=== PATIENT | female | born 1965 | race Caucasian/White ===

== ENCOUNTER 2016-06-24 16:21 | Emergency (ER) | payer BC ==
--- NOTE | ~2016-06-24 | CT4 ---
[facility] A Service of [facility] & [facility] RADIOLOGY TEXT RESULTS PATIENT: ALFA ZENG LOCATION: SED : 61 UNIT #: [id number] AGE: [address]: Raciel Peña SEX: F ORDER DR: [id number] [address] [id number] [id number] E MR#: [id number] Acc #: [id number] NAME: ALFA ZENG. : 1965 SEX: F STUDY DATE/TIME: 06/24/2016 18:01 UNIT: SED ROOM: STUDY DESCRIPTION: CT Abd and Pelv Wo Cont Attending Physician: Raciel Peña P.A.-C. Ordering Physician: Raciel Peña P.A.-C. Primary Care Physician: Mary Jo Sun M.D. MEDICAL IMAGING REPORT This report is preliminary unless electronic signature is present. EXAM Abdomen and pelvis CT, no contrast, 06/24/2016 INDICATIONS A 50-year-old female with flank pain on the left, hematuria since this morning. TECHNIQUE This CT exam was performed with one or more of the following radiation dose reduction techniques: automatic exposure control, adjustment of mA and/or kV according to patient size, and iterative reconstruction. Noncontrast abdomen and pelvis CT was performed COMPARISON 09/27/[address] ABDOMEN: Exam degraded by noncontrast technique. The included lung bases are clear. There is no effusion. Aorta unremarkable. There is a 6 mm obstructing stone at the left renal pelvis. There is hydronephrosis of the upper pole collecting system of the left kidney. The stone may actually be lodged at the junction of the renal pelvis and upper pole collecting system, given the distribution of hydronephrosis of the left kidney. The remainder of the left ureter is decompressed. There is no additional radiopaque stone on the left. No radiopaque stone on the right. There is incomplete rotation of the right kidney, an anatomic variant. The solid abdominal organs are otherwise unremarkable. Incidental small hiatal hernia. CT Pelvis: There is a small exophytic fibroid arising from the uterine fundus to the right of midline measuring about 2.3 cm. The bladder STS. [facility] A Service of [facility] & [facility] RADIOLOGY TEXT RESULTS PATIENT: ALFA ZENG LOCATION: SED : 61 UNIT #: [id number] AGE: [address]: Raciel Peña PAC SEX: F ORDER DR: decompressed but otherwise unremarkable. No drainable fluid collection in the pelvis. Physiologic appearing follicles in both ovaries. There is a probably benign cyst in the left ovary measuring 3.2 cm. This could be better assessed with dedicated nonemergent pelvic ultrasound, given patient age. There is diverticulosis. The appendix is normal. Inguinal canals unremarkable. There is no suspicious bone lesion. Degenerative changes are present in the thoracolumbar spine. Upon review of the prior CT from 09/27/2015, the above described hydronephrosis of the left kidney most likely actually represents a chronic peripelvic cyst on the left. The appearance of the left kidney is unchanged from the prior study with the exception of migration of the 6 mm stone into the left renal pelvis. IMPRESSION 1. There is a 6 mm stone at the left renal pelvis that appears to have migrated from the lower pole collecting system since the prior study of 09/27/2015. This likely accounts for hematuria symptoms. 2. What likely represents a chronic peripelvic cyst on the left simulating hydronephrosis of the left kidney. The appearance is unchanged from 09/27/2015. There is no new perinephric stranding or other stigmata of hydronephrosis on the current study despite migration of the stone into the left renal pelvic region. 3. Incomplete rotation of the right kidney, an anatomic variant. 4. The appendix is normal. 5. Incidental diverticulosis. 6. Probable physiologic cyst in the left ovary measures at 3.2 cm. See discussion above. 7. Leiomyomatous change of the uterus. Dictated by... Rm Saavedra M.D. THIS IS AN ELECTRONICALLY VERIFIED REPORT Rm Saavedra M.D. at 06/25/2016 10:18 AM Jaime TD: 06/25/2016 00:40 JOB #: [id number] MEDICAL IMAGING REPORT
[~2016-06-24 16:21] MED LIST: B12 PO; CIPRO PO; CLARITIN10 M2 PO; CLARITIN10 MG PO; DICYCLOMINE HCL20 MG PO; ESTROVEN ENERG1 EACH; GLUCOPHAGE XR500 MG PO; GLUCOPHAGE500 M1 PO; HYDROCODON-ACE1 EAC7 PO; KETOPROFEN PO; LEVOTHROID150 MCG PO; LEVOTHYROXINE175 MCG PO; LORATADINE PO; LOSARTAN HCTZ PO; LOSARTAN-HCTZ1 EAC2 PO; METFORMIN HCL500 M1 PO; METFORMIN PO; NASONEX17 GM; NEXIUM PO; OMEPRAZOLE20 M2 PO; OMEPRAZOLE40 M1 PO; PREDNISONE PO; PRILOSEC40 MG PO; SYNTHROID PO; SYNTHROID137 MCG PO; VENAFAXINE PO; VENLAFAXINE HC150 M1 PO; VICODIN 5/500 T1 TAB PO; VITAMIN D2 PO; ZOFRAN ODT4 MG PO; ZOLOFT PO; ZOLOFT50 MG PO; ZYRTEC10 M2 PO
[2016-06-24 17:14] LABS: URINE SOURCE CLEAN CATCH
[2016-06-24 17:21] LABS: URINE APPEARANCE SL CLOUDY; URINE BILIRUBIN NEG (NEG); URINE BLOOD 3+ (NEG); URINE COLOR YELLOW; URINE GLUCOSE NEG (NORM); URINE KETONE TRACE (NEG); URINE LEUKOCYTE ESTERASE NEG (NEG); URINE NITRATE NEG (NEG); URINE PROTEIN TRACE (NEG)
[2016-06-24 17:22] LABS: MICRO INDICATED? YES
[2016-06-24 17:24] LABS: BASOPHIL# 0.1 X10e3 (0-0.3); BASOPHIL% 0.8 % (0-2.5); EOSINOPHIL# 0.4 X10e3 (0-0.7); EOSINOPHIL% 4.3 % (0.0-7.0); HEMATOCRIT 36.2 % (35.0-45.0); HEMOGLOBIN 12.1 gm/dL (12.0-16.0); LYMPHOCYTE# 2.9 X10e3 (1.0-3.5); LYMPHOCYTE% 28.6 % (17.0-45.0); MEAN CELL VOLUME 84.1 FL (83-96); MEAN CORPUSCULAR HEMOGLOBIN 28.1 PG (28-34); MEAN CORPUSCULAR HGB CONC 33.5 g/dL (30-36); MEAN PLATELET VOLUME 7.7 FL (6.5-11.5); NEUTROPHIL# 5.7 X10e3 (1.5-7.1); NEUTROPHIL% 56.3 % (40-75); PLATELET COUNT 359 X10e3 (140-420); RED BLOOD COUNT 4.31 X10e (3.90-5.30); RED CELL DISTRIBUTION WIDTH 15.7 % (11.0-15.5); WHITE BLOOD COUNT 10.1 X10e3 (4.0-10.5)
[2016-06-24 17:31] LABS: DIFF IND NO
[2016-06-24 17:34] LABS: CULTURE INDICATED? YES; URINE BACTERIA 1+ (NEG); URINE RBC 100-200 /[HPF] (0-2); URINE SQUAMOUS EPITHELIAL CELL OCCAS /[HPF]
[2016-06-24 17:43] LABS: ALBUMIN SERUM 3.8 g/dL (3.5-5.0); ALKALINE PHOSPHATASE 68 U/L (32-92); ALT (SGPT) 17 U/L (10-40); AST (SGOT) 15 U/L (10-42); BILIRUBIN, DIRECT 0.1 mg/dL (0.0-0.2); BILIRUBIN,INDIRECT 0.1 mg/dL (0.0-0.9); BILIRUBIN,TOTAL 0.2 mg/dL (0.2-2.0); BLOOD UREA NITROGEN 12 mg/dL (9-23); BUN/CREATININE RATIO 17.14; CALCIUM SERUM 8.9 mg/dL (8.4-10.2); CARBON DIOXIDE 26 mmol/L (22-31); CHLORIDE 102 mmol/L (100-111); CREATININE SERUM 0.7 mg/dL (0.6-1.4); GLOM FILT RATE Estimated ABOVE60 mL/min (>60); GLUCOSE FASTING 87 mg/dL (70-110); LIPASE 29 U/L (22-51); POTASSIUM 3.5 mmol/L (3.5-5.1); PROTEIN TOTAL SERUM 6.8 g/dL (6.0-8.3); SODIUM 137 mmol/L (135-145)
== END 2016-06-24 19:21 | disposition home or self-care (01) ==
LOC: SED 16:21
PROVIDERS: Physician Assistant
DX: N20.1 Calculus of ureter (principal); E11.9 Type 2 diabetes mellitus without complications; Z79.84 Long term (current) use of oral hypoglycemic drugs; I10 Essential (primary) hypertension; K21.9 Gastro-esophageal reflux disease without esophagitis; Z88.0 Allergy status to penicillin; Z88.2 Allergy status to sulfonamides; Z79.899 Other long term (current) drug therapy
CPT/HCPCS: 36415; 74176; 80048; 80076; 81003; 83690; 85025; 87086; 99284; J1885; J2405